=== PATIENT | female | born 1965 | race Caucasian/White ===

== ENCOUNTER 2018-04-29 21:35 | Emergency (ER) | payer OTHER ==
[~2018-04-29] VITALS: Ht 167.6 cm; Wt 65.8 kg
[2018-04-29 21:44] VITALS: BP_SYST 155
[2018-04-29] MEDS ORDERED: IBUPROFEN 600 MG TABLET PO ONE (23:30)
[2018-04-30] VITALS: BP_SYST 148
== END 2018-04-30 01:00 | disposition home or self-care (01) ==
LOC: SED 21:35
DX: S60.211A Contusion of right wrist, initial encounter (principal); S20.219A Contusion of unspecified front wall of thorax, initial encounter; I10 Essential (primary) hypertension; V49.9XXA Car occupant (driver) (passenger) injured in unspecified traffic accident, initial encounter; Y93.I9 Activity, other involving external motion; Y92.89 Other specified places as the place of occurrence of the external cause; Y99.8 Other external cause status
CPT/HCPCS: 71046-TC; 72125-TC; 99284